=== PATIENT | male | born 1955 | race Caucasian/White ===

== ENCOUNTER → 2018-01-26 | Outpatient (CLI) | payer BC | END | disposition home or self-care (01) | LOC: SUSANVILLE 09:00 | PROVIDERS: ATTEND Internal Medicine Cardiovascular Disease | DX: I07.1 Rheumatic tricuspid insufficiency (principal); I48.0 Paroxysmal atrial fibrillation; I10 Essential (primary) hypertension; B19.20 Unspecified viral hepatitis C without hepatic coma | CPT/HCPCS: 93306 ==

== ENCOUNTER → 2020-09-13 | Outpatient (CLI) | payer MEDICARE, BC ==
[~2020-09-13] MED LIST: REGADENOSON 0.4 MG/5 ML SYRINGE ONE
== END | disposition home or self-care (01) ==
LOC: CFH 12:03
PROVIDERS: ATTEND Internal Medicine Cardiovascular Disease
DX: I48.0 Paroxysmal atrial fibrillation (principal); R06.02 Shortness of breath
CPT/HCPCS: 78452; 93017; A9502; J2785

== ENCOUNTER 2020-09-22 05:52 | Day surgery (SDC) | payer MEDICARE, BC ==
[~2020-09-22] VITALS: Ht 182.9 cm; Wt 109.1 kg
[2020-09-22 06:19] VITALS: BP 122/90
[2020-09-22] MEDS ORDERED: CARV-39 PO (06:24)
[2020-09-22] MEDS ORDERED: HYDR-3342 PO (06:24)
[2020-09-22] MEDS ORDERED: LOSA100T14 PO (06:24)
[2020-09-22] MEDS ORDERED: AMLO-211 PO (06:24)
[2020-09-22] MEDS ORDERED: HYDR-3343 PO (06:24)
[2020-09-22] MEDS ORDERED: APIX5TAB PO (06:24)
[2020-09-22] MEDS ORDERED: ATOR10TA9 PO (06:24)
[2020-09-22 06:54] LABS: ANION GAP 11 mmol/L (5-15); CALCIUM 8.8 mg/dL (8.5-10.1); CHLORIDE 107 mmol/L (98-107); CREATININE 0.93 mg/dL (0.7-1.3)
[2020-09-22] MEDS ORDERED: PROPOFOL 10 MG/ML, 20ML ONE (08:16)
== END 2020-09-22 10:04 | disposition home or self-care (01) ==
LOC: CACL 05:52
PROVIDERS: ATTEND Internal Medicine Cardiovascular Disease
DX: I48.0 Paroxysmal atrial fibrillation (principal); I10 Essential (primary) hypertension; E78.5 Hyperlipidemia, unspecified; B18.2 Chronic viral hepatitis C; Z88.1 Allergy status to other antibiotic agents; Z79.01 Long term (current) use of anticoagulants; Z79.899 Other long term (current) drug therapy; Z98.890 Other specified postprocedural states
CPT/HCPCS: 36415; 80048; 92960; 93005; J2704